=== PATIENT | male | born 1965 | race Caucasian/White ===

== ENCOUNTER → 2017-06-22 | Outpatient (CLI) | payer BC ==
--- NOTE | 2017-08-03 10:53 | SLEEP ---
[facility] [address] [place] [address] SLEEP STUDY REPORT Name: MEGHAN SNYDER [id number] Admission: 06/22/17 Attend Phys: KWESI KHAN Discharge: Date of : 61 Report #: [id number] THIS REPORT FOR: //name// CC: Merlin OSULLIVAN This study has been reviewed in its entirety by a board certified sleep specialist DATE OF SERVICE: 06/24/2017 INDICATION FOR SLEEP STUDY: Witnessed apneas while asleep. TYPE OF SLEEP STUDY: Home sleep study. INTERPRETATION: Total duration of the study is 408 minutes. During this time duration, we recorded multiple sleep related respiratory events. These included 128 obstructive apneas in addition to 11 mixed apneas and 273 hypopneas. Overall apnea-hypopnea index is 61.3. Body position data indicates the patient was observed in the supine position for 377 minutes. Rest of the time, the patient was in other positions. There are also multiple desaturations recorded. The patient spent 5.2 minutes below an O2 saturation of 88%. Events do appear to be somewhat more common in the supine position. IMPRESSION: Obstructive sleep apnea with nocturnal hypoxemia. See details above. RECOMMENDATIONS: I recommend proceeding to a sleep study in the sleep lab for evaluation on positive airway pressure. Considering the severity of the patient's sleep apnea, I favor not using a CPAP auto titrated device without first doing an in-lab sleep study. In case for any reason an in-lab sleep study is not feasible, then a CPAP auto titrated device can be used. However, this may not be the optimal therapy for this patient. <ELECTRONICALLY SIGNED> By: Ambrocio Bautista MD 08/03/17 [id number] Bautista MD /nt
== END ==
LOC: M.SLEEPLAB 09:00
DX: G47.00 Insomnia, unspecified (principal)

== ENCOUNTER → 2017-08-21 | Outpatient (CLI) | payer BC ==
--- NOTE | 2017-08-29 11:16 | SLEEP ---
[address] [address] SLEEP STUDY REPORT Name: BLAKE SNYDERN Albina [facility] [id number] Admission: 08/21/17 Attend Phys: KWESI KHAN Discharge: Date of : 61 Report #: [id number] THIS REPORT FOR: //name// CC: Merlin OSULLIVAN This study has been reviewed in its entirety by a board certified sleep specialist REFERRING PHYSICIAN: KWESI Jones; Merlin Corrales DO. TYPE OF STUDY: Split night study. METHODS: The following parameters were monitored: Frontal, central and occipital EEG; electro-oculogram; submentalis EMG; nasal and oral airflow; anterior tibialis EMG; body position and electrocardiogram. Additionally, thoracic and abdominal movements were recorded by inductance plethysmography. Oxygen saturation was monitored using pulse oximeter. The tracing was scored using 30-second epochs. Hypopneas were scored using the [place] [employer] definition and using the 4% desaturation criteria. This was split night study. During the diagnostic portion of the study, total recording time was 200.3 minutes. Total sleep time was 138 minutes. Sleep efficiency was decreased at 68.9%. SLEEP STAGING: During the diagnostic portion of the study, stage N1 32.6% of total sleep time, stage N2 65.9% total sleep time, stage N3 1.4% of total sleep time, stage REM none. During the diagnostic portion of the study, the patient had a total of 8 apneas and 92 hypopneas. The episodes were more frequent on the supine position. The overall apnea-hypopnea index was 43.5/hour; however, the apnea-hypopnea index in supine sleep was 58.5/hour. The average heart rate during the diagnostic portion of the study was 75.4. No arrhythmias were reported. PLM, the limb movement index was 32.2. The average O2 saturation was 93%. The lowest O2 saturation recorded was 85%. Titration portion of the study: During the titration portion of the study, the patient was titrated on CPAP pressure between 7 and 13 cm of water. At level of 12 cm of water, the patient slept for 112.5 minutes, 30.9 minutes were in lateral REM sleep. The apnea-hypopnea index at this level was 5.9 per hour with the lowest O2 saturation recorded was 90%. The average heart rate during the titration portion of the study was 67.4. [place] [address] SLEEP STUDY REPORT Name: MEGHAN SNYDER [facility]: [facility]#: [id number] Admission: 08/21/17 Attend Phys: KWESI KHAN Discharge: Date of : 61 Report #: [id number] arrhythmias were reported. The limb movement index was 33.2. IMPRESSION: Severe obstructive sleep apnea with apnea-hypopnea index of 43.5 and oxygen saturation to a christa of 85% and sleep apnea was much worse in supine position. RECOMMENDATIONS: 1. Recommend a trial of CPAP therapy at a pressure of 12 cm of water with a close clinical followup and data download. 2. Avoid supine sleep if possible. 3. Avoid alcohol, sedatives, hypnotics close to bedtime. 4. Avoid driving or operating machinery while sleepy. 5. Recommend maintaining ideal body weight. <ELECTRONICALLY SIGNED> By: Renee Powell MD 08/29/17 1116 [id number] Powell MD /nt
== END ==
LOC: M.SLEEPLAB 19:58
DX: G47.33 Obstructive sleep apnea (adult) (pediatric) (principal)